=== PATIENT | female | born 1955 | race Caucasian/White ===

== ENCOUNTER 2024-08-24 05:36 | Day surgery (SDC) | payer OTHER, SELFPAY ==
[2024-08-24] VITALS (7 sets, daily range): BP systolic 96–131; BP diastolic 50–70; PULSE 72–92; RESP 16–18; TEMP 36.6–36.8; O2SAT 99–100; BMI 17.5
[2024-08-24] MEDS: Lactated Ringers 1,000 ML 15 ML IV (06:24)
--- NOTE | 2024-08-24 06:40 | PRE.ANES_ITS ---
ASA Classification* ASA Classification ASA Classification: 2 Assessment & Plan Anesthesia* Anesthesia Assessment Anesthesia Assessment: Discussed sedation and/or anesthesia options, risks, benefits, and alternatives with patient/parents/legal guardian/POA. Questions invited. The patient/parents/legal guardian/POA seems to understand and agrees to proceed with anesthesia plan. Reviewed the physical assessment, medical history, allergy history and patient home medications list prior to surgery/procedure/anesthetic and documented any changes. Performed airway and anesthesia risk assessments. Anesthesia Type Anesthesia Type: MAC History Source History Obtained from:: Patient and Chart Anesthesia Focused Assessment* Temperature: 98.1 F Pulse Rate: 92 Blood Pressure: 131/70 Respiratory Rate: 18 Pulse Ox: 100 Oxygen Delivery Method: Room Air Airway Assessment Mouth opens: >3 cm Mallampati Score: I Teeth Condition: Dentures (Patient has upper dentures. They will stay in) and Missing (Patient is edentulous on the bottom.) Neck Range of motion (ROM): Full ROM Focused Labs Anesthesia Preop lab: CBC CHEMISTRY COAG Pre-Assessment Diagnosis/Proposed Procedure Planned Operative Procedure(s): HYSTEROSCOPY D&C Anesthesia History Anesthesia History - underwriting service representative: Anesthesia History - underwriting service representative Hx Hospitalization No 08/23/24 10:34 Any Problems With Anesthesia No 08/23/24 10:34 Cholinesterase deficiency No 08/23/24 10:34 You/Your Family Experience No 08/23/24 10:34 fever (hyperthermia) with Relationship Recent Exposure to Contagious No 08/24/24 06:21 Disease Does patient have nerve No 08/23/24 10:34 stimulator Patient instructed to have device shut off --Does patient have Pacemaker No 08/24/24 06:21 or ICD? When Was Last Pacemaker Check QUESTION #4 FULL TEXT: You/Your Family Experience fever (hyperthermia) with Anesthesia Last Oral Intake Last Oral intake: Last Oral Intake NPO since 05:00 08/24/24 06:21 Meds taken in AM with sips of Yes 08/24/24 06:21 water? Meds patient instructed to pantoprazole 08/24/24 06:21 take am of surgery Any additional information?: Yes Meds taken in AM with sips of water?: Yes PONV PONV - underwriting service representative: PONV - underwriting service representative Female Yes 08/23/24 10:34 HX of Motion Sickness No 08/23/24 10:34 HX of N/V After Surgery No 08/23/24 10:34 Non-Smoker Yes 08/23/24 10:34 Duration of Surgery greater No 08/23/24 10:34 than 60 minutes Number of Risk Factors 2 08/23/24 10:34 PONV Score Moderate Risk 08/23/24 10:34 Height & Weight Height & Weight: Anesthesia: Height & Weight Height 4 ft 10 in 08/24/24 06:21 Weight: 38 kg 08/24/24 06:21 Body Mass Index (BMI) 17.5 08/24/24 06:21 Respiratory Assessment Respiratory Assessment - underwriting service representative: Respiratory Tract Infection Hx - underwriting service representative Hx Respiratory Tract Infection No 08/23/24 10:34 STOP Sleep Apnea STOP Sleep Apnea - underwriting service representative: STOP Sleep Apnea - underwriting service representative Hx Hypertension Yes: CONTROLLED WITH MED 08/23/24 10:34 Hx Sleep Apnea No 08/23/24 10:34 CPAP BIPAP Do you snore loudly (louder No 08/23/24 10:34 than talking or can be heard Do you often feel tired/ No 08/23/24 10:34 fatigued/ sleepy during daytime? Has anyone observed you stop No 08/23/24 10:34 breathing during sleep? STOP Results Negative 08/23/24 10:34 QUESTION #5 FULL TEXT : Do you snore loudly (louder than talking or can be heard through closed doors)? Tobacco Use History Tobacco Use History - underwriting service representative: Tobacco Use History - underwriting service representative Tobacco Use Smoking Status Never smoker 08/23/24 10:34 Hx Tobacco Use No 08/23/24 10:34 Years Smoking Packs Smoked per Day Smoking Cessation Date was within the last 15 years Hx Smoking Cessation Date Hx Smoking Cessation No 08/23/24 10:34 Counseling Hematologic Medial History Hematologic Hx - underwriting service representative: Hematologic Medical Hx - accounts receivable collector Hx of Blood Transfusion No 08/23/24 10:34 Hx of Transfusion in last 3 No 08/23/24 10:34 Months Date of Last Transfusion (if within last 3 months) Ever experience any problems No 08/23/24 10:34 with transfusion(s)? Specify any problems Hx of Preganancy in last 3 No 08/23/24 10:34 Months Nurse Filling Out Transfusion DSCHRIBER 08/23/24 10:34 & Questions: Date: 08/23/24 08/23/24 10:34 Time: 10:36 08/23/24 10:34 Patient unable to answer at this time (ie. confused, unrespo /Reproduction History /Reproductive History - underwriting service representative: /Reproductive Hx- underwriting service representative Hx Now No 08/23/24 10:34 Gestational Age (in weeks): EDC: Hx Hx Para Hx Section SAB No 08/23/24 10:34 Active Medications Active Medications: Current Medications Generic Name Dose Route Start Last Admin Trade Name Freq PRN Reason Stop Dose Admin Lactated Ringer's 1,000 mls @ 15 mls/hr 08/24/24 06:15 08/24/24 06:24 IV 15 mls/hr .Q48H SYLVESTER Administration PFSH Medical History Wears glasses Wears dentures Post-menopausal High cholesterol Easy bruising Hx of subdural hemorrhage Gastric reflux Non-smoker Hypertension Home Medications ?Medication ?Instructions ?Recorded ?Last Taken ?Type cholecalciferol (vitamin D3) 50 50 mcg PO DAILY Unknown History mcg (2,000 unit) capsule (Vitamin D3) lisinopril 10 mg tablet 10 mg PO DAILY 08/23/24 Unkn own History pantoprazole 40 mg tablet,delayed 40 mg PO DAILY 08/2308/24/24 History release Allergy/AdvReac Type Severity Reaction Status Date / Time amoxicillin (From Augmentin) Allergy Severe Upset Verified 08/24/24 06:21 Stomach clavulanic acid (From Allergy Severe Upset Verified 08/24/24 06:21 Augmentin) Stomach Sulfa (Sulfonamide Allergy Intermediate Rash Verified 08/24/24 06:19 Antibiotics) metronidazole (From Flagyl) AdvReac Intermediate Upset Verified 08/24/24 06:19 Stomach Surgical History History of esophagogastroduodenoscopy (EGD) Hx of colonoscopy Hx of dilation and curettage Social History Smoking Status: Never smoker Review of Systems (Anesthesia) ROS Narrative System reviewed and no additional complaints, except as documented.
[2024-08-24] MEDS: Lidocaine 1% /Epi 1:100 (50ml) 50 ML VIAL (06:50)
--- NOTE | 2024-08-24 07:18 | HP.PCM.OB_ITS ---
HPI - General General Date of Admission: 08/24/24 Date of Service: 08/24/24 Chief Complaint: thickened endometrium HPI Narrative DEMETRIUS MENJIVAR, is a 68 F who presents for surgery for thickened endometrium and fluid on pelvic US. [facility] Medical History Wears glasses Wears dentures Post-menopausal High cholesterol Easy bruising Hx of subdural hemorrhage Gastric reflux Non-smoker Hypertension Home Medications ?Medication ?Instructions ?Recorded ?Last Taken ?Type cholecalciferol (vitamin D3) 50 50 mcg PO DAILY Unknown History mcg (2,000 unit) capsule (Vitamin D3) lisinopril 10 mg tablet 10 mg PO DAILY 08/23/24 Unkn own History pantoprazole 40 mg tablet,delayed 40 mg PO DAILY 08/2308/24/24 History release Allergy/AdvReac Type Severity Reaction Status Date / Time amoxicillin (From Augmentin) Allergy Severe Upset Verified 08/24/24 06:21 Stomach clavulanic acid (From Allergy Severe Upset Verified 08/24/24 06:21 Augmentin) Stomach Sulfa (Sulfonamide Allergy Intermediate Rash Verified 08/24/24 06:19 Antibiotics) metronidazole (From Flagyl) AdvReac Intermediate Upset Verified 08/24/24 06:19 Stomach Surgical History History of esophagogastroduodenoscopy (EGD) Hx of colonoscopy Hx of dilation and curettage Social History Smoking Status: Never smoker Vital Signs Vital Signs Vital Signs: 08/24/24 06:21 08/24/24 06:21 08/24/24 06:46 Temperature 98.1 F 98.1 F Temperature Source Temporal Pulse Rate 92 92 Respiratory Rate 18 18 Respiratory Pattern Normal Blood Pressure 131/70 H 131/70 H Blood Pressure Mean 90 Blood Pressure Source Monitor Blood Pressure Position Sitting Blood Pressure Location Left Arm Pulse Ox 100 100 Oxygen Delivery Method Room Air Room Air Weight Weight: 83 lb 12.41 oz Body Mass Index (BMI) 17.5 Labs Labs Labs: No Data to Display Assessment & Plan (1) Endometrial thickening on ultrasound: PLAN: See scanned in H&P and updated H&P in patient's chart. Discussed r/b/a hysteroscopy, D&C, possible polypectomy. Patient desires to proceed and consent on chart. Received pre op clearance from PCP.
--- NOTE | 2024-08-24 07:21 | PCM.DC ---
Discharge Instructions Diet Discharge Diet: No restrictions DC O2, CPAP, BIPAP needs Home O2 Discharge instructions: No Dressing / Incision Discharge Activity: May Not Drive (for 24 hours after the procedure) and May Not Shower (for 24 hours after the procedure) May resume sexual activity in: 1 week (nothing in the vagina and no soaking in water for 1 week) Lifting Restrictions: none Dressing / Incision Call your doctor if you observe: Fever of 101 or Higher, Numbness or Tingling, Inability to urinate, Using more than 1 pad per hour, Shortness of breath, Dizziness, Chest pain, Increased palpitations (irregular heartbeat), Calf discomfort and Uncontrolled pain Follow Up Care Please Follow Up With: La Crawford DO When: 1 week follow up Test Results: Test results from this visit will be discussed in further detail at your follow-up appointment, if applicable. Discharge Plan Admission Primary Reason for Your Visit: D&C Attending Provider: La Crawford Primary Care Provider: Flaca Jain NP Instructions Patient Instructions: Dilation and Curettage Print Language: [place] Island[place] Discharge Orders/Prescriptions Prescriptions: Continued pantoprazole 40 mg tablet,delayed release (DR/EC) 40 mg PO DAILY cholecalciferol (vitamin D3) [Vitamin D3] 50 mcg (2,000 unit) capsule 50 mcg PO DAILY lisinopril 10 mg tablet 10 mg PO DAILY Referrals / Follow Up: Flaca Jain NP, PELLETIZER OPERATOR-C [Primary Care Provider] - Disposition Disposition (needs filled in before D/C Order can be placed): Home, Self Care
--- NOTE | 2024-08-24 07:30 | EMB_PTH ---
PATIENT: DEMETRIUS MENJIVAR LOC: [facility] [place] U#:[id number] AGE/SX: 68/F ROOM: RE08/24/[address]: Dr. La Crawford DO : 1955 BED: DIS: 08/24/2024 SPEC #: [id number] RECD: 08/24/24 09:10 STATUS: RENE DARIELA #: [id number] MIRIAM: 08/24/24 07:[address]: La Crawford DEPT: SURGICAL PATHOLOGY RECD BY: Rashi Dickerson ENTERED: 08/24/24 09:51 SP TYPE: ENDOM BX/C HUMZA DR: Flaca Jain, JAMIE Tissues: A - Endometrium, NOS Procedures: Surgery Specimen Level IV HEADER OPERATION: Hysteroscopy, D&C PRE-OP DIAGNOSIS: Thickened endometrium TISSUE SUBMITTED: A- Endometrial curettings MICROSCOPIC DIAGNOSIS A. Endometrium, curettage: * Scant inactive/basalis endometrium - see note. * Fragments of benign cervical squamous mucosa. * Note: A limited amount of tissue is present for evaluation. Clinical correlation is necessary to assess the adequacy of the sampling. MICROSCOPIC DESCRIPTION Slides are reviewed. GROSS DESCRIPTION A. Received in formalin in a container labeled with the patient's name, date of , and endometrial curettings is a small amount of red-yun soft tissue fragments admixed with blood and mucus measuring 0.8 x 0.7 x 0.2 cm in aggregate. Submitted in toto in A1. [facility] 08-24-2024 CPT:08016
--- NOTE | 2024-08-24 07:53 | PCM.OPRPT ---
Problems Associated Problem List Diagnoses (1) Endometrial thickening on ultrasound: Operative Report (Standard) Operative Information Date of Procedure: 08/24/24 Pre-Operative Diagnosis: Thickened endometrium on pelvic ultrasound with fluid present Post-Operative Diagnosis: As above Surgery/Procedure Performed: Hysteroscopy D&C semiconductor technician: No Type of Anesthesia: MAC RN Documented Start/Stop Times: Operation Date: 08/24/24 07:30 Case Time Into Pre-Op 08/24/24 06:04 Out of Pre-Op 08/24/24 07:23 Anesthesia Start 08/24/24 07:30 Into Room 08/24/24 07:30 Procedure Start 08/24/24 07:42 Procedure Start Time: 07:42 Procedure Stop Time: 07:49 Select all DRAINS/GRAFTS/IMPLANTS that apply: None Special Medications: None Estimated Blood Loss: < 20 mL Fluids Replaced: See anesthesia record Specimen collected: Yes Description of specimen(s) removed: Endometrial curettings Description of surgery: The patient was taken to the operating room where MAC anesthesia was induced and found to be adequate. She was prepped and draped in the dorsal lithotomy position using yellowfin stirrups. A weighted speculum was placed in the vagina to expose the cervix. The anterior lip of the cervix was grasped with single-tooth tenaculum. Vulvar and vaginal atrophy was noted. The cervix was serially dilated to accommodate the hysteroscope. The hysteroscope was advanced into the uterus, the uterus was distended with normal saline as distention media. The uterine cavity was normal-appearing, and bilateral tubal ostia were visualized. The endometrium was thin and atrophic appearing. There were no polyps or lesions within the uterine cavity. The hysteroscope was slowly removed through the endocervical canal which was also normal-appearing without lesions noted. The hysteroscope was removed. A sharp curettage was performed for scant endometrial tissue. Endometrial curettings were sent to pathology for review. All instruments were removed from the vagina. A vaginal sweep was performed. Instrument and sponge counts were correct. The patient was taken to the recovery room in stable condition. Surgical Findings: Uterus sounded to 6.5 cm. Thin and atrophic appearing endometrium. No lesions noted Complications Complications: No Admit VTE Documentation VTE Present on Admission: No VTE Mechan Device Prophylaxis: SCD's
--- NOTE | 2024-08-24 07:57 | PCM.POST.ANE ---
Anesthesia: Postop Eval I Current Vital Signs Temperature: 97.9 F Pulse Rate: 72 Blood Pressure: 101/54 Respiratory Rate: 16 Pulse Ox: 100 Oxygen Delivery Method: Room Air Assessment Airway patent: Yes Spontaneous unlabored respirations: Yes Mental status: Awake and Calm nausea: No Vomiting: No Anesthesia Complication: No Fluid Hydration Crystalloid volume administer (ml): 400 Total IV fluid infused: 400 Progress Note Anesthesia document: Postop Eval 1 completed: Yes
--- NOTE | 2024-08-24 16:40 | POSTOPAN2_ITS ---
Anesthesia Postop Eval I Sum Postop Eval Completion status Anesthesia document: Postop Eval 1 completed: Yes Anesthesia Postop Eval I Summary Anesthesia Postop Eval I Summary: Anesthesia Postop Eval I: Assessment Summary Airway patent Yes 08/24/24 07:58 HEALTH SCIENCE WRITER.CHINOOBY Spontaneous unlabored Yes 08/24/24 07:58 HEALTH SCIENCE WRITER.TAB respirations Mental status Awake,Calm 08/24/24 07:58 HEALTH SCIENCE WRITER.CHINOOBGuille nausea No 08/24/24 07:58 HEALTH SCIENCE WRITER.CHINOOBGuille Vomiting No 08/24/24 07:58 HEALTH SCIENCE WRITER.TAB Anesthesia Postop Eval I: Fluid Summary Crystalloid volume administer 400 08/24/24 07:58 HEALTH SCIENCE WRITER.CHINOOBY (ml) Colloids volume administered ( ml) Blood Product volume administered (ml) Total IV fluid infused 400 08/24/24 07:58 HEALTH SCIENCE WRITER.TAB Anesthesia Postop Eval I: Summary Notes Anesthesia Complication No 08/24/24 07:58 HEALTH SCIENCE WRITER.TAB Anesthesia Complication Comment: Post-operative progress note Anesthesia: Postop Eval II Evaluation Mental status: Awake Pain Level: 2 nausea: No Vomiting: No
--- NOTE | 2024-08-24 16:40 | PCM.POSTANE2 ---
Anesthesia Postop Eval I Sum Postop Eval Completion status Anesthesia document: Postop Eval 1 completed: Yes Anesthesia Postop Eval I Summary Anesthesia Postop Eval I Summary: Anesthesia Postop Eval I: Assessment Summary Airway patent Yes 08/24/24 07:58 FLIGHT HOSTESS.CHINOOBY Spontaneous unlabored Yes 08/24/24 07:58 FLIGHT HOSTESS.TAB respirations Mental status Awake,Calm 08/24/24 07:58 FLIGHT HOSTESS.CHINOOBGuille nausea No 08/24/24 07:58 FLIGHT HOSTESS.CHINOOBGuille Vomiting No 08/24/24 07:58 FLIGHT HOSTESS.TAB Anesthesia Postop Eval I: Fluid Summary Crystalloid volume administer 400 08/24/24 07:58 FLIGHT HOSTESS.CHINOOBY (ml) Colloids volume administered ( ml) Blood Product volume administered (ml) Total IV fluid infused 400 08/24/24 07:58 FLIGHT HOSTESS.TAB Anesthesia Postop Eval I: Summary Notes Anesthesia Complication No 08/24/24 07:58 FLIGHT HOSTESS.TAB Anesthesia Complication Comment: Post-operative progress note Anesthesia: Postop Eval II Evaluation Mental status: Awake Pain Level: 2 nausea: No Vomiting: No
== END 2024-08-24 08:59 | disposition home or self-care (01) ==
LOC: SDC 05:40 → AC 05:41
PROVIDERS: PCP Nurse Practitioner Adult Health; Referring Provider Obstetrics & Gynecology; Visit Provider Obstetrics & Gynecology
PROC: 0UDB8ZZ Extraction of Endometrium, Via Natural or Artificial Opening Endoscopic (ICD-10-PCS; CPT 58558; principal; 2024-08-24 07:20)
DX: N85.8 Other specified noninflammatory disorders of uterus (principal); R93.89 Abnormal findings on diagnostic imaging of other specified body structures; I10 Essential (primary) hypertension; E78.00 Pure hypercholesterolemia, unspecified; K21.9 Gastro-esophageal reflux disease without esophagitis
CPT/HCPCS: 58558; 00952; 88305; J2405